=== PATIENT | male | born 1940 | race Hispanic/Latino ===

== ENCOUNTER → 2018-10-10 | Outpatient (CLI) | payer OTHER ==
[2018-10-10 10:06] LABS: INR 1.09 (0.85-1.15); PROTHROMBIN TIME 11.4 SEC (9.6-11.6)
--- NOTE | 2018-10-10 10:10 | NUR ---
US GUIDED RIGHT THORACENTESIS PROCEDURE PERFORMED BY DR. GUTIERREZ. PUNCTURE SITE TO THE RIGHT SIDE OF THE POSTERIOR BACK AND PT TOLERATED PROCEDURE WELL. TOTAL REMOVED 1.5 LITERS OF CLOUDY YELLOW FLUID. END OF PROCEDURE AT 1020. CATHETER REMOVED AND DRESSING APPLIED. NO BLEEDING NOTED. POST CHEST X-RAY TAKEN AND READ BY DR. GUTIERREZ. NO PNEUMOTHORAX SEEN. DISCHARGE INSTRUCTIONS GIVEN TO PATIENT AND SON AND VERBALIZED UNDERSTANDING. DISCHARGED AMBULATORY. STABLE, AAO X 3. NO COMPLAINS OF PAIN.
== END | disposition home or self-care (01) ==
LOC: RAH 09:06
PROVIDERS: ATTEND Internal Medicine Cardiovascular Disease
DX: J90 Pleural effusion, not elsewhere classified (principal); Z79.01 Long term (current) use of anticoagulants
CPT/HCPCS: 32555; 36415; 71045; 85610; 85730

== ENCOUNTER → 2018-10-17 | Outpatient (CLI) | payer OTHER ==
[~2018-10-17] MED LIST: AMLO5TAB9 PO; APIX5TAB PO; CARV25TA PO; FENO145T37 PO; FINA5TAB41 PO; FURO40TA5 PO; LISI40TA4 PO; METF-446 PO; METO-391 PO; SIMV40TA5 PO
== END | disposition home or self-care (01) ==
LOC: SHCH 16:02
PROVIDERS: ATTEND Internal Medicine Cardiovascular Disease
DX: I08.3 Combined rheumatic disorders of mitral, aortic and tricuspid valves (principal); I48.0 Paroxysmal atrial fibrillation
CPT/HCPCS: 93306

== ENCOUNTER 2018-11-10 05:49 | Day surgery (SDC) | payer OTHER ==
[2018-11-08 15:25] VITALS: BP 125/40
[2018-11-08 15:58] LABS: EOSINOPHILS % (AUTO) 3.4 % (0.0-8.0); HEMATOCRIT 32.7 % (42-54); LYMPHOCYTES % (AUTO) 23.4 % (21.0-51.0); MEAN CORPUSCULAR HEMOGLOBIN 25.9 pg (27.0-33.0); MEAN CORPUSCULAR HGB CONC 32.7 g/dL (32.0-36.0); MONOCYTES % (AUTO) 8.8 % (3.0-13.0); NEUTROPHILS % (AUTO) 63.4 % (40.0-77.0); PLATELET COUNT (AUTO) 166 K/uL (130-400); RED BLOOD CELL COUNT(AUTO) 4.14 MIL/uL (4.50-6.20); RED CELL DISTRIBUTION WIDTH 18.8 % (11.0-15.5)
[2018-11-08 16:05] LABS: CREATININE 1.2 mg/dL (0.5-1.5); POTASSIUM 4.2 mmol/L (3.5-5.1)
[2018-11-08 16:10] LABS: INR 1.08 (0.85-1.15); PARTIAL THROMBOPLASTIN TIME 33.7 SEC (26.3-35.5); PROTHROMBIN TIME 11.3 SEC (9.6-11.6)
--- NOTE | 2018-11-09 10:58 | NUR ---
LABS ABNORMAL LABS REPORTED TO DR. HERNANDEZ. MESSAGE LEFT WITH [facility]. PER [facility] FAX LABS SO DR. HERNANDEZ CAN REVIEW. PENDING CALL BACK IF ANY FURTHER ORDERS GIVEN.
[2018-11-10] VITALS (11 sets, daily range): BP systolic 137–182; BP diastolic 44–91
[~2018-11-10] VITALS: Ht 175.3 cm; Wt 69.7 kg
[2018-11-10] MEDS ORDERED: CEFAZOLIN SODIUM 1 GM VIAL IVP SCH (06:00)
[2018-11-10] MEDS ORDERED: SODIUM CHLORIDE 0.9% 1000ML 1,000 ML IV ONE (06:16)
[2018-11-10] MEDS ORDERED: BUPIVACAINE/PF 0.25% 10ML VIAL IJ ONE (07:07)
[2018-11-10] MEDS ORDERED: LIDOCAINE HCL 1% MDV 50ML VIAL ONE (07:07)
[2018-11-10] MEDS ORDERED: CEFAZOLIN SODIUM 1 GM VIAL ONE (07:08)
[2018-11-10] MEDS ORDERED: MIDAZOLAM HCL 1 MG/ML 2ML VIAL ONE (07:57)
[2018-11-10] MEDS ORDERED: MEPERIDINE-PF 25 MG/ML SYG ONE (07:58)
[2018-11-10] MEDS ORDERED: ACETAMINOPHEN 325 MG TAB PO PRN (09:15)
[2018-11-10] MEDS ORDERED: ACETAMINOPHEN-CODEINE 300/30MG TAB PO PRN ×2 (09:15)
== END 2018-11-10 12:35 | disposition home or self-care (01) ==
LOC: DAH 05:49
PROVIDERS: ATTEND Internal Medicine Cardiovascular Disease
DX: Z45.2 Encounter for adjustment and management of vascular access device (principal); I25.5 Ischemic cardiomyopathy; Z79.01 Long term (current) use of anticoagulants; I34.0 Nonrheumatic mitral (valve) insufficiency; I11.0 Hypertensive heart disease with heart failure; I50.9 Heart failure, unspecified; Z79.899 Other long term (current) drug therapy; Z79.84 Long term (current) use of oral hypoglycemic drugs; Z98.890 Other specified postprocedural states
CPT/HCPCS: 33262; 36415; 80048; 82948 ×2; 85025; 85610; 85730; A4606; C1722; J0690; J2175; J2250; J3490 ×2; J7030; 99156; 99157

== ENCOUNTER → 2019-09-08 | Outpatient (CLI) | payer OTHER ==
[~2019-09-08] MED LIST changes: +FENO145T26 PO; -FENO145T37 PO; +SIMV-46 PO; -SIMV40TA5 PO
== END | disposition home or self-care (01) ==
LOC: OIH 09:45
PROVIDERS: ATTEND Urology
DX: N28.1 Cyst of kidney, acquired (principal); N39.0 Urinary tract infection, site not specified; M47.816 Spondylosis without myelopathy or radiculopathy, lumbar region; Z95.0 Presence of cardiac pacemaker
CPT/HCPCS: 74176

== ENCOUNTER → 2019-12-15 | Outpatient (CLI) | payer OTHER | END | disposition home or self-care (01) | LOC: RAH 07:31 | PROVIDERS: ATTEND Urology | DX: N28.1 Cyst of kidney, acquired (principal); N32.3 Diverticulum of bladder; N20.0 Calculus of kidney | CPT/HCPCS: 76770 ==

== ENCOUNTER 2020-09-05 21:34 | Inpatient (IN) | payer OTHER ==
[~2020-09-05] VITALS: Ht 182.9 cm; Wt 67.0 kg
[~2020-09-05 21:34] MED LIST changes: +AMLO-257 PO; -AMLO5TAB9 PO; -LISI40TA4 PO; +LISI40TA9 PO
[2020-09-05 22:13] LABS: BASOPHILS % (AUTO) 0.2 % (0.0-5.0); EOSINOPHILS % (AUTO) 0.2 % (0.0-8.0); HEMATOCRIT 30.5 % (42-54); MEAN CORPUSCULAR HEMOGLOBIN 26.4 pg (27.0-33.0); MEAN CORPUSCULAR HGB CONC 32.5 g/dL (32.0-36.0); MEAN CORPUSCULAR VOLUME 81.3 fL (79-99); MONOCYTES % (AUTO) 5.2 % (3.0-13.0); PLATELET COUNT (AUTO) 117 K/uL (130-400); RED BLOOD CELL COUNT(AUTO) 3.75 MIL/uL (4.50-6.20); RED CELL DISTRIBUTION WIDTH 15.7 % (11.0-15.5); WHITE BLOOD COUNT (AUTO) 5.5 K/uL (4.8-10.8)
[2020-09-05 22:14] LABS: APPEARANCE,URINE Cloudy (CLEAR); BILIRUBIN,URINE Small (NEGATIVE); COLOR,URINE Dark Yellow (YELLOW); GLUCOSE, URINE (UA) 250 mg/dL (NEGATIVE); KETONES,URINE Trace mg/dL (NEGATIVE); LEUKOCYTE ESTERASE ,URINE Small (NEGATIVE); NITRATE,URINE Negative (NEGATIVE); OCCULT BLOOD,URINE Moderate (NEGATIVE); PH,URINE 5.5 (5.0-8.0); PROTEIN,URINE 300 mg/dL (NEGATIVE)
[2020-09-05 22:27] LABS: BACTERIA,URINE Many /HPF (None Seen); MUCUS,URINE Moderate LPF (None Seen); SQUAMOUS EPITHELIAL CELL,UR Few /HPF (0-2); WBC,URINE 26-50 /HPF (0-1)
[2020-09-05 22:29] LABS: CARBON DIOXIDE 24 mmol/L (21-32); CHLORIDE 100 mmol/L (101-111); CREATININE 0.9 mg/dL (0.5-1.5); GLOMERULAR FILTR. RATE CALC 86 mL/min (>60); GLUCOSE,RANDOM 208 mg/dL (70-105); POTASSIUM 4.2 mmol/L (3.5-5.1); SODIUM SERUM 134 mmol/L (136-145); UREA NITROGEN, BLOOD 17 mg/dL (7-18)
[2020-09-05 22:32] LABS: INR 1.34 (0.85-1.15); PROTHROMBIN TIME 14.2 SEC (9.6-11.6)
[2020-09-05 22:33] LABS: PARTIAL THROMBOPLASTIN TIME 31.2 SEC (26.3-35.5)
[2020-09-05] MEDS ORDERED: CEFTRIAXONE 1G VIAL ONE (22:39)
[2020-09-05 22:41] LABS: ALANINE AMINOTRANSFERASE 13 U/L (12-78); ALBUMIN 3.2 g/dL (3.5-5.0); ASPARTATE AMINOTRANSFERASE 16 U/L (10-37); CREATINE KINASE, TOTAL 25 U/L (21-232); MYOGLOBIN 31 ng/mL (10-92); TOTAL PROTEIN, SERUM 6.5 g/dL (6.0-8.3); TROPONIN I < 0.04 ng/mL (0.00-0.06)
[2020-09-05 22:49] LABS: B-TYPE NATRIURETIC PEPTIDE 1410 pg/mL (0-100)
[2020-09-05 23:22] LABS: ABG HCO3 22.2 mmol/L (21.0-28.0); ABG OXYGEN SATURATION 98.2 % (95.0-99.0); ABG PCO2 33 mmHg (35-48)
[2020-09-05] MEDS ORDERED: FUROSEMIDE 40MG VIAL ONE (23:36)
[2020-09-06 00:50] VITALS: BP 118/70
[2020-09-06 04:00] VITALS: BP 108/83
[2020-09-06 05:19] LABS: BASOPHILS % (AUTO) 0.2 % (0.0-5.0); EOSINOPHILS % (AUTO) 0.2 % (0.0-8.0); HEMATOCRIT 28.8 % (42-54); LYMPHOCYTES % (AUTO) 14.3 % (21.0-51.0); MEAN CORPUSCULAR HEMOGLOBIN 25.8 pg (27.0-33.0); MEAN CORPUSCULAR HGB CONC 31.9 g/dL (32.0-36.0); MEAN CORPUSCULAR VOLUME 80.9 fL (79-99); MONOCYTES % (AUTO) 7.4 % (3.0-13.0); NEUTROPHILS % (AUTO) 77.7 % (40.0-77.0); PLATELET COUNT (AUTO) 108 K/uL (130-400); RED BLOOD CELL COUNT(AUTO) 3.56 MIL/uL (4.50-6.20); RED CELL DISTRIBUTION WIDTH 15.5 % (11.0-15.5); WHITE BLOOD COUNT (AUTO) 4.2 K/uL (4.8-10.8)
[2020-09-06 05:36] LABS: ALBUMIN 2.9 g/dL (3.5-5.0); CREATININE 0.9 mg/dL (0.5-1.5); POTASSIUM 3.7 mmol/L (3.5-5.1); TOTAL PROTEIN, SERUM 6.3 g/dL (6.0-8.3)
[2020-09-06 08:00] VITALS: BP 113/44
[2020-09-06] MEDS ORDERED: FENOFIBRATE NANOCRYSTALLIZED 48 MG TAB PO SCH (10:22)
[2020-09-06] MEDS: APIXABAN 5 MG TABLET PO SCH ×2 (11:37→21:51)
[2020-09-06] MEDS: METFORMIN HCL 500 MG TABLET PO SCH ×2 (11:37→17:22)
[2020-09-06] MEDS: AMLODIPINE 5 MG TAB PO SCH (11:38)
[2020-09-06] MEDS: TAMSULOSIN HCL 0.4 MG CAP.ER.24H PO SCH ×2 (11:38→21:51)
[2020-09-06] MEDS: CARVEDILOL 12.5 MG TABLET PO SCH ×2 (11:38→21:00)
[2020-09-06 11:42] VITALS: BP 114/62
[2020-09-06 16:00] VITALS: BP 118/34
[2020-09-06] MEDS ORDERED: VANCOMYCIN PROTOCOL PER PHARMACY IV SCH (19:15)
[2020-09-06 20:00] VITALS: BP 116/46
[2020-09-06] MEDS ORDERED: VANCOMYCIN 1G 1.25 GM in 0.9% NACL 250ML 250 ML IV ONE (20:00)
[2020-09-06] MEDS: FINASTERIDE 5 MG TABLET PO SCH (21:51)
[2020-09-06] MEDS: SIMVASTATIN 10 MG TABLET PO SCH (21:51)
[2020-09-06] MEDS ORDERED: CEFTRIAXONE 1G VIAL IVP SCH (22:00)
[2020-09-07] VITALS: BP 129/51
[2020-09-07] MEDS: FUROSEMIDE 40MG VIAL IV SCH ×3 (01:48→17:38)
[2020-09-07 04:00] VITALS: BP 100/45
[2020-09-07] MEDS ORDERED: VANCOMYCIN 1G/250ML KIT 250 ML IV SCH (06:00)
[2020-09-07] MEDS ORDERED: LIDOCAINE HCL-MPF 1% 2ML VIAL IV PRN (06:30)
[2020-09-07] MEDS ORDERED: DEXTROSE 50%-WATER 50 ML DISP.SYRIN IV PRN (06:30)
[2020-09-07] MEDS ORDERED: GLUCAGON 1MG KIT 1 MG ML IM PRN (06:30)
[2020-09-07] MEDS ORDERED: POTASSIUM CHLORIDE 10% ELIXIR 20 MEQ/15 ML UDCUP PO PRN (06:30)
[2020-09-07] MEDS: INSULIN HUMULIN R 100 UNIT/ML 3ML SQ SCH ×4 (07:30→20:31)
[2020-09-07 08:00] VITALS: BP 120/40
[2020-09-07] MEDS: CARVEDILOL 12.5 MG TABLET PO SCH ×2 (09:00→20:28)
[2020-09-07] MEDS: FENOFIBRATE NANOCRYSTALLIZED 48 MG TAB PO SCH (09:35)
[2020-09-07] MEDS: METFORMIN HCL 500 MG TABLET PO SCH (09:35)
[2020-09-07] MEDS: TAMSULOSIN HCL 0.4 MG CAP.ER.24H PO SCH ×2 (09:35→20:28)
[2020-09-07] MEDS: APIXABAN 5 MG TABLET PO SCH ×2 (09:35→20:29)
[2020-09-07] MEDS: AMLODIPINE 5 MG TAB PO SCH (09:35)
[2020-09-07 12:07] VITALS: BP 104/74
[2020-09-07 16:00] VITALS: BP 119/43
[2020-09-07 18:29] LABS: CRP QUANTITATIVE 76.5 mg/L (0.00-9.0)
[2020-09-07 20:05] VITALS: BP 136/74
[2020-09-07] MEDS: FINASTERIDE 5 MG TABLET PO SCH (20:28)
[2020-09-07] MEDS: FAMOTIDINE 20MG TAB PO SCH (20:29)
[2020-09-07] MEDS: SIMVASTATIN 10 MG TABLET PO SCH (20:29)
[2020-09-07] MEDS ORDERED: ZOSYN 3.375GM+NS 50ML 50 ML IV SCH (21:00)
[2020-09-07] MEDS ORDERED: RENAL DOSE IV SCH (22:45)
[2020-09-07] MEDS ORDERED: SPIRONOLACTONE 25 MG TAB ONE (22:47)
[2020-09-07] MEDS ORDERED: MEROPENEM 500 MG VIAL ONE (22:47)
[2020-09-07] MEDS: MEROPENEM 500 MG VIAL IVP SCH (23:12)
[2020-09-07] MEDS: SPIRONOLACTONE 25 MG TAB PO SCH (23:12)
[2020-09-08 00:08] VITALS: BP 138/64
[2020-09-08] MEDS: FUROSEMIDE 40MG VIAL IV SCH ×3 (01:24→17:49)
[2020-09-08 04:18] VITALS: BP 147/63
[2020-09-08 05:47] LABS: BASOPHILS % (AUTO) 0.9 % (0.0-5.0); EOSINOPHILS % (AUTO) 3.1 % (0.0-8.0); HEMATOCRIT 34.3 % (42-54); LYMPHOCYTES % (AUTO) 26.1 % (21.0-51.0); MEAN CORPUSCULAR HEMOGLOBIN 25.5 pg (27.0-33.0); MEAN CORPUSCULAR HGB CONC 31.8 g/dL (32.0-36.0); MEAN CORPUSCULAR VOLUME 80.3 fL (79-99); MONOCYTES % (AUTO) 11.1 % (3.0-13.0); NEUTROPHILS % (AUTO) 58.8 % (40.0-77.0); PLATELET COUNT (AUTO) 181 K/uL (130-400); RED BLOOD CELL COUNT(AUTO) 4.27 MIL/uL (4.50-6.20); RED CELL DISTRIBUTION WIDTH 15.4 % (11.0-15.5); WHITE BLOOD COUNT (AUTO) 2.3 K/uL (4.8-10.8)
[2020-09-08] MEDS: MEROPENEM 500 MG VIAL IVP SCH ×3 (05:53→22:30)
[2020-09-08 06:12] LABS: CREATININE 0.9 mg/dL (0.5-1.5)
[2020-09-08] MEDS: POTASSIUM CHLORIDE 20MEQ/100ML 100 ML IV PRN ×2 (06:34→10:37)
[2020-09-08] MEDS: INSULIN HUMULIN R 100 UNIT/ML 3ML SQ SCH ×4 (06:45→20:09)
[2020-09-08 06:48] LABS: EOSINOPHILS % (MANUAL) 4 % (1-6); LYMPHOCYTES % (MANUAL) 24 % (22-44); MAN.DIFF COMMENT-IMPRESSION MANUAL DIFFERENTIAL; MONOCYTES % (MANUAL) 10 % (2-9); SEGMENTED NEUTROPHILS % 62 % (40-70)
[2020-09-08 08:59] VITALS: BP 147/53
[2020-09-08] MEDS: AMLODIPINE 5 MG TAB PO SCH (09:26)
[2020-09-08] MEDS: FENOFIBRATE NANOCRYSTALLIZED 48 MG TAB PO SCH (09:26)
[2020-09-08] MEDS: FAMOTIDINE 20MG TAB PO SCH ×2 (09:26→20:07)
[2020-09-08] MEDS: SPIRONOLACTONE 25 MG TAB PO SCH ×2 (09:27→22:30)
[2020-09-08] MEDS: TAMSULOSIN HCL 0.4 MG CAP.ER.24H PO SCH ×2 (09:28→20:06)
[2020-09-08] MEDS: APIXABAN 5 MG TABLET PO SCH ×2 (09:28→20:07)
[2020-09-08] MEDS: CARVEDILOL 12.5 MG TABLET PO SCH ×2 (09:28→20:08)
[2020-09-08 12:00] VITALS: BP 121/43
[2020-09-08 16:00] VITALS: BP 155/54
[2020-09-08] MEDS: SIMVASTATIN 10 MG TABLET PO SCH (20:06)
[2020-09-08] MEDS: FINASTERIDE 5 MG TABLET PO SCH (20:07)
[2020-09-08 20:08] VITALS: BP 140/65
[2020-09-09 00:18] VITALS: BP 117/67
[2020-09-09] MEDS: FUROSEMIDE 40MG VIAL IV SCH ×3 (01:19→16:49)
[2020-09-09 05:41] LABS: BASOPHILS % (AUTO) 0.4 % (0.0-5.0); EOSINOPHILS % (AUTO) 2.7 % (0.0-8.0); HEMATOCRIT 34.7 % (42-54); LYMPHOCYTES % (AUTO) 33.6 % (21.0-51.0); MEAN CORPUSCULAR HEMOGLOBIN 25.5 pg (27.0-33.0); MEAN CORPUSCULAR VOLUME 79.8 fL (79-99); MONOCYTES % (AUTO) 10.7 % (3.0-13.0); NEUTROPHILS % (AUTO) 52.2 % (40.0-77.0); PLATELET COUNT (AUTO) 195 K/uL (130-400); RED BLOOD CELL COUNT(AUTO) 4.35 MIL/uL (4.50-6.20); RED CELL DISTRIBUTION WIDTH 15.1 % (11.0-15.5); WHITE BLOOD COUNT (AUTO) 2.6 K/uL (4.8-10.8)
[2020-09-09 05:49] VITALS: BP 150/59
[2020-09-09 05:49] LABS: CREATININE 1.1 mg/dL (0.5-1.5); POTASSIUM 3.3 mmol/L (3.5-5.1)
[2020-09-09] MEDS: MEROPENEM 500 MG VIAL IVP SCH ×3 (05:55→22:30)
[2020-09-09] MEDS: KCL 20 MEQ ERTAB PO PRN ×3 (05:55→09:13)
[2020-09-09] MEDS: INSULIN HUMULIN R 100 UNIT/ML 3ML SQ SCH ×4 (06:42→20:27)
[2020-09-09 08:00] VITALS: BP 132/59
[2020-09-09] MEDS: CARVEDILOL 12.5 MG TABLET PO SCH ×2 (09:14→20:19)
[2020-09-09] MEDS: TAMSULOSIN HCL 0.4 MG CAP.ER.24H PO SCH ×2 (09:14→20:18)
[2020-09-09] MEDS: APIXABAN 5 MG TABLET PO SCH ×2 (09:14→20:18)
[2020-09-09] MEDS: SPIRONOLACTONE 25 MG TAB PO SCH ×2 (09:14→22:33)
[2020-09-09] MEDS: AMLODIPINE 5 MG TAB PO SCH (09:15)
[2020-09-09] MEDS: FENOFIBRATE NANOCRYSTALLIZED 48 MG TAB PO SCH (09:15)
[2020-09-09] MEDS: FAMOTIDINE 20MG TAB PO SCH ×2 (09:15→20:18)
[2020-09-09 12:00] VITALS: BP 96/33
[2020-09-09 16:00] VITALS: BP 111/45
[2020-09-09 20:14] VITALS: BP 125/64
[2020-09-09] MEDS: FINASTERIDE 5 MG TABLET PO SCH (20:18)
[2020-09-09] MEDS: SIMVASTATIN 10 MG TABLET PO SCH (20:18)
[2020-09-10 00:13] VITALS: BP 118/47
[2020-09-10] MEDS: FUROSEMIDE 40MG VIAL IV SCH ×3 (01:23→17:43)
[2020-09-10 04:28] VITALS: BP 118/52
[2020-09-10] MEDS: MEROPENEM 500 MG VIAL IVP SCH ×3 (05:57→21:54)
[2020-09-10 06:05] LABS: HEMATOCRIT 33.1 % (42-54); MEAN CORPUSCULAR HEMOGLOBIN 25.6 pg (27.0-33.0); MEAN CORPUSCULAR HGB CONC 31.4 g/dL (32.0-36.0); MEAN CORPUSCULAR VOLUME 81.5 fL (79-99); RED BLOOD CELL COUNT(AUTO) 4.06 MIL/uL (4.50-6.20); RED CELL DISTRIBUTION WIDTH 15.2 % (11.0-15.5); WHITE BLOOD COUNT (AUTO) 3.4 K/uL (4.8-10.8)
[2020-09-10 06:25] LABS: ALBUMIN 3.2 g/dL (3.5-5.0); BILIRUBIN,TOTAL 0.9 mg/dL (0.2-1.0); CREATININE 1.2 mg/dL (0.5-1.5); MAGNESIUM 1.7 mg/dL (1.80-2.40); POTASSIUM 3.5 mmol/L (3.5-5.1); TOTAL PROTEIN, SERUM 6.9 g/dL (6.0-8.3)
[2020-09-10] MEDS: KCL 20 MEQ ERTAB PO PRN ×2 (06:38→07:11)
[2020-09-10] MEDS: INSULIN HUMULIN R 100 UNIT/ML 3ML SQ SCH ×4 (06:45→20:30)
[2020-09-10 08:00] VITALS: BP 113/22
[2020-09-10] MEDS: CARVEDILOL 12.5 MG TABLET PO SCH ×2 (09:00→20:29)
[2020-09-10] MEDS: APIXABAN 5 MG TABLET PO SCH ×2 (09:00→20:28)
[2020-09-10] MEDS: TAMSULOSIN HCL 0.4 MG CAP.ER.24H PO SCH ×2 (09:00→20:28)
[2020-09-10] MEDS: AMLODIPINE 5 MG TAB PO SCH (09:00)
[2020-09-10] MEDS: FAMOTIDINE 20MG TAB PO SCH ×2 (09:00→20:28)
[2020-09-10] MEDS: SPIRONOLACTONE 25 MG TAB PO SCH ×2 (09:00→22:45)
[2020-09-10] MEDS: FENOFIBRATE NANOCRYSTALLIZED 48 MG TAB PO SCH (12:00)
[2020-09-10 13:44] VITALS: BP 102/59
[2020-09-10 16:33] VITALS: BP 113/34
[2020-09-10] MEDS ORDERED: LACTULOSE 20 GM/30 ML UDCUP PO PRN (18:30)
[2020-09-10 20:23] VITALS: BP 142/80
[2020-09-10] MEDS: FINASTERIDE 5 MG TABLET PO SCH (20:28)
[2020-09-10] MEDS: SIMVASTATIN 10 MG TABLET PO SCH (20:28)
[2020-09-10] MEDS: BALSAM PERU/CASTOR OIL 60 GM TUBE TP SCH (20:48)
[2020-09-11] VITALS: BP 116/51
[2020-09-11] MEDS: FUROSEMIDE 40MG VIAL IV SCH ×2 (01:50→09:52)
[2020-09-11 04:21] VITALS: BP 119/59
[2020-09-11 05:57] LABS: MEAN CORPUSCULAR HEMOGLOBIN 25.6 pg (27.0-33.0); MEAN CORPUSCULAR HGB CONC 32.1 g/dL (32.0-36.0); RED BLOOD CELL COUNT(AUTO) 4.25 MIL/uL (4.50-6.20); RED CELL DISTRIBUTION WIDTH 15.1 % (11.0-15.5); WHITE BLOOD COUNT (AUTO) 3.3 K/uL (4.8-10.8)
[2020-09-11] MEDS: MEROPENEM 500 MG VIAL IVP SCH ×2 (06:01→14:20)
[2020-09-11 06:11] LABS: ALBUMIN 3.5 g/dL (3.5-5.0); CREATININE 1.3 mg/dL (0.5-1.5); MAGNESIUM 2.8 mg/dL (1.80-2.40); POTASSIUM 3.9 mmol/L (3.5-5.1); TOTAL PROTEIN, SERUM 7.2 g/dL (6.0-8.3)
[2020-09-11] MEDS: INSULIN HUMULIN R 100 UNIT/ML 3ML SQ SCH ×2 (06:46→12:13)
[2020-09-11 08:03] VITALS: BP 118/74
[2020-09-11] MEDS: CARVEDILOL 12.5 MG TABLET PO SCH (08:43)
[2020-09-11] MEDS: SPIRONOLACTONE 25 MG TAB PO SCH (08:43)
[2020-09-11] MEDS: FENOFIBRATE NANOCRYSTALLIZED 48 MG TAB PO SCH (08:43)
[2020-09-11] MEDS: FAMOTIDINE 20MG TAB PO SCH (08:44)
[2020-09-11] MEDS: TAMSULOSIN HCL 0.4 MG CAP.ER.24H PO SCH (08:44)
[2020-09-11] MEDS: BALSAM PERU/CASTOR OIL 60 GM TUBE TP SCH ×2 (08:44→14:21)
[2020-09-11] MEDS: AMLODIPINE 5 MG TAB PO SCH (08:44)
[2020-09-11] MEDS: APIXABAN 5 MG TABLET PO SCH (08:44)
[2020-09-11 12:39] VITALS: BP 143/56
[2020-12-23] MEDS ORDERED: CARV12.511 PO (05:25)
[2020-12-23] MEDS ORDERED: TAMS-1 PO (05:25)
== END 2020-09-11 16:30 | DRG 177 ==
LOC: EDH 21:34 → OBSVTOIN 23:23 → UNDOADMOB 23:23 → INTOOBSV 23:23 → EDHIP 23:23 → 3DH 09-06 00:30 → 4AH 09-07 17:30 → UNDODISIN 09-11 16:30
PROVIDERS: ADMIT Internal Medicine; ATTEND Internal Medicine
DX: U07.1 COVID-19 (principal); I50.23 Acute on chronic systolic (congestive) heart failure; J12.82 Pneumonia due to coronavirus disease 2019; N39.0 Urinary tract infection, site not specified; G93.49 Other encephalopathy; Z16.24 Resistance to multiple antibiotics; B96.20 Unspecified Escherichia coli [E. coli] as the cause of diseases classified elsewhere; L89.151 Pressure ulcer of sacral region, stage 1; B96.89 Other specified bacterial agents as the cause of diseases classified elsewhere; E11.9 Type 2 diabetes mellitus without complications; I25.10 Atherosclerotic heart disease of native coronary artery without angina pectoris; I48.91 Unspecified atrial fibrillation; R53.81 Other malaise; N40.0 Benign prostatic hyperplasia without lower urinary tract symptoms; F03.90 Unspecified dementia, unspecified severity, without behavioral disturbance, psychotic disturbance, mood disturbance, and anxiety; E78.5 Hyperlipidemia, unspecified; E87.6 Hypokalemia; I11.0 Hypertensive heart disease with heart failure; Z95.810 Presence of automatic (implantable) cardiac defibrillator; Z83.3 Family history of diabetes mellitus; Z84.89 Family history of other specified conditions; Z82.49 Family history of ischemic heart disease and other diseases of the circulatory system
CPT/HCPCS: 36415; 36600; 71045; 80048; 80053; 80202; 81001; 82550; 82728; 82803; 82948; 83605; 83615; 83735; 83874; 83880; 84145; 84484; 85025; 85027; 85378; 85610; 85730; 86140; 86900; 86901; 87040; 87077; 87088; 87186; 87426; 87804; 93005; 97039; 99291; G0378; J0696; J1815; J1940; J2185; J2543; J3370; J3480; J3490; J7050; U0003